=== PATIENT | male | born 2000 | race Caucasian/White ===

== ENCOUNTER 2021-03-15 15:16 | Emergency (ER) | payer OTHER ==
[~2021-03-15] VITALS: Ht 175.3 cm; Wt 54.4 kg
[2021-03-15] MEDS ORDERED: VISTARIL 25 MG25 M1 PO (17:42)
== END 2021-03-15 17:45 | disposition home or self-care (01) ==
LOC: M.ERS 15:16
DX: F41.9 Anxiety disorder, unspecified (principal); F17.210 Nicotine dependence, cigarettes, uncomplicated